=== PATIENT | male | born 1995 | race Caucasian/White ===

== ENCOUNTER 2017-04-10 04:36 | Emergency (ER) | payer OTHER ==
[~2017-04-10] VITALS: Ht 172.7 cm; Wt 48.0 kg
[~2017-04-10 04:36] MED LIST: DEXM5TAB PO; ERGO1CAP35 PO; OLAN-111 PO; ONDA4TAB7 SL; SERT-234 PO; TRAM-10 PO
[2017-04-10 04:44] VITALS: TEMP 36.7; Ht 172.7 cm; Wt 48.0 kg
[2017-04-10] MEDS ORDERED: GELATIN SPONGE 12-7MM ONE (05:11)
[2017-04-10 05:17] VITALS: BP 99/59; PULSE 65; O2SAT 98
--- NOTE | 2017-04-10 05:19 | EMERGENCY ROOM VISIT NOTE ---
ED Visit Note First contact with patient: 04:53 CHIEF COMPLAINT: Finger laceration HISTORY OF PRESENT ILLNESS: This 22 year old male patient presents to the emergency department after cutting the left thumb about 30 minutes ago. The patient states that he was hungry this morning, and got up to eat pizza. The patient used a sharp knife to cut the pizza, and sliced the very distal end of his thumb. The bleeding has not stopped. Denies weakness or numbness of the finger. The patient has full range of motion of the fingers. The patient rates the pain as dull and 5/10. The patient denies any other injuries. The patient' s tetanus shot is reportedly up to date. REVIEW OF SYSTEMS: A 6 system review of systems was completed with positives and pertinent negatives listed in the HPI. ALLERGIES: See EMR MEDICATIONS: See EMR PMH: No chronic medical disease SOCIAL HISTORY: Student who lives locally PHYSICAL EXAM: Vital Signs: Reviewed Nurse's notes, vital signs stable. GENERAL : White male, in no acute distress, well developed, well nourished. SKIN: There is a C shaped 1.0 cm long laceration on the most distal aspect of the left first finger. The edges do not significantly gape. There is no foreign material in the wound and it looks clean. There is minimal bleeding. No deep structures such as tendons, bones, or significant blood vessels are seen in the base of the wound. Extension and flexion of the finger is full and strong. Full range of motion of the wrist and other fingers. Capillary refill less than 2 seconds. Normal sensation to light and sharp touch. EMERGENCY DEPARTMENT COURSE: Physical exam and history were performed. Nursing notes and EMR were reviewed. The patient appears to have suffered a laceration to the very distal end of his left thumb. The wound is with minimal bleeding. I discussed options of care with the patient. The wound was cleansed thoroughly and treated with a Gelfoam dressing. The patient tolerated this well and he was given wound care instructions as below. The patient rated his discomfort a 0/10 at the time of departure. Current/Historical Medications Scheduled Ergocalciferol (Vitamin D Cap), 50,000 INTER.UNIT PO WK Olanzapine (Zyprexa), 5 MG PO DAILY Sertraline (Zoloft), 150 MG PO DAILY Scheduled PRN Dexmethylphenidate Hcl (Focalin), 5 MG PO DAILY PRN for ATTENTION Ondansetron (Zofran Odt), 4 MG SL Q6 PRN for Nausea or Vomiting Tramadol (Ultram), 50 MG PO Q6 PRN for Pain Allergies Coded Allergies: Metoclopramide (Unverified Allergy, Severe, SWOLLEN [employer]WAY, 06/23/14) Astemizole (Verified Allergy, Unknown, 06/23/14) Erythromycin (Verified Allergy, Unknown, 06/23/14) Sulfa Drugs (Verified Allergy, Unknown, 06/23/14) Terfenadine (Verified Allergy, Unknown, 06/23/14) Vital Signs Date Time Temp Pulse Resp B/P (MAP) Pulse Ox O2 Delivery O2 Flow Rate FiO2 04/10/17 04:44 36.7 87 18 137/96 97 Room Air Departure Information Impression Primary Impression: Finger laceration Dispostion Home / Self-Care Condition GOOD Forms HOME CARE DOCUMENTATION FORM, IMPORTANT VISIT INFORMATION Patient Instructions My [facility] Additional Instructions You were seen and evaluated today on an emergency basis only. This is not a substitute for, or an effort to provide, complete comprehensive medical care. It is not possible to recognize and treat all injuries or illnesses in a single emergency department visit. For this reason it is recommended that you followup with your primary care physician with any ongoing or persistent symptoms. Try to keep the Gelfoam in place for the next 48 hours. You may change the dressing if it becomes soiled or 24 hours goes by. You are welcome to return to the emergency department anytime with new, worsening, or concerning symptoms.
== END 2017-04-10 05:18 | disposition home or self-care (01) ==
LOC: C.EDB 04:36
DX: S61.012A Laceration without foreign body of left thumb without damage to nail, initial encounter (principal); W26.0XXA Contact with knife, initial encounter; Y93.G1 Activity, food preparation and clean up; Z79.899 Other long term (current) drug therapy

== ENCOUNTER 2017-11-26 11:16 | Emergency (ER) | payer OTHER ==
[~2017-11-26] VITALS: Ht 172.7 cm; Wt 49.4 kg
[2017-11-26 11:27] VITALS: TEMP 36.5; Ht 172.7 cm; Wt 49.4 kg
[2017-11-26] MEDS ORDERED: KETOROLAC TROMETHAMINE 30 MG/ML VIAL IV STA (11:34)
[2017-11-26] MEDS ORDERED: ONDANSETRON INJ 2 MG/ML 2 ML VIAL IV STA (11:34)
[2017-11-26] MEDS ORDERED: SODIUM CHLORIDE 0.9% 1000ML 1,000 ML IV STA (11:34)
[2017-11-26 11:48] LABS: BASO % 0.1 %; BASO ABS # 0.01 K/uL (0-0.2); EOS % 0.5 %; EOS ABS # 0.04 K/uL (0-0.5); HEMATOCRIT 44.7 % (42-52); HEMOGLOBIN 15.8 g/dL (14.0-18.0); IG# 0.02 K/uL (0.00-0.02); LYMPH % 43.3 %; LYMPH ABS # 3.39 K/uL (1.2-3.4); MEAN CELL VOLUME 89.2 fL (80-100); MEAN CORPUSCULAR HEMOGLOBIN 31.5 pg (25-34); MEAN CORPUSCULAR HGB CONC 35.3 g/dl (32-36); MEAN PLATELET VOLUME 10.6 fL (7.4-10.4); MONO % 8.4 %; MONO ABS # 0.66 K/uL (0.11-0.59); NEUT % 47.4 %; NEUT ABS # 3.71 K/uL (1.4-6.5); PLATELET COUNT 501 K/uL (130-400); RED CELL DISTRIBUTION WIDTH CV 13.3 % (11.5-14.5); RED CELL DISTRIBUTION WIDTH SD 43.4 fL (36.4-46.3); WHITE BLOOD COUNT 7.83 K/uL (4.8-10.8)
[2017-11-26] MEDS ORDERED: IBUP-103 PO (11:49)
[2017-11-26 12:06] LABS: ALBUMIN 4.4 gm/dl (3.4-5.0); CALCIUM 9.3 mg/dl (8.5-10.1); CREATININE 0.84 mg/dl (0.60-1.40); POTASSIUM 3.8 mmol/L (3.5-5.1)
[2017-11-26 12:09] LABS: TOTAL PROTEIN 8.5 gm/dl (6.4-8.2)
--- NOTE | 2017-11-26 12:22 | DIAGNOSTIC IMAGING REPORT ---
CT SCAN OF THE ABDOMEN AND PELVIS WITHOUT CONTRAST CLINICAL HISTORY: Right flank pain COMPARISON STUDY: 12/05/2013 TECHNIQUE: CT scan of the abdomen and pelvis was performed from the lung bases to the proximal femurs. Images are reviewed in the axial, sagittal, and coronal planes. IV contrast was not administered for this examination. A dose lowering technique was utilized adhering to the principles of ALARA. CT DOSE: 259.40 mGy.cm FINDINGS: Lower chest: The heart is normal in size and configuration, without pericardial effusion. The lung bases and pleural spaces are clear. Liver: The unenhanced liver is normal in size, contour, and attenuation. There is no intrahepatic biliary ductal dilatation. Gallbladder: Unremarkable. Spleen: Normal in size and attenuation. Pancreas: Unremarkable. Adrenal glands: Unremarkable. Kidneys: No renal calculi are visualized. There is minimal fullness the right renal pelvis. There is a 2.4 mm distal right ureteral calculus. There is a second right pelvic calcification. This likely represents either a second ureteral calculus, or appendicolith. Bowel: There are no transition zones to indicate bowel obstruction. The appendix is difficult to visualize on this study performed without intravenous or oral contrast. There is a right lower quadrant calcification, likely representing either an appendicolith or ureteral calculus. There is borderline wall thickening involving the descending colon. Peritoneum: There is no intraperitoneal free air or abdominal ascites. Vasculature: The abdominal aorta is normal in course and caliber. Adenopathy: None. Pelvic viscera: The bladder, and pelvic viscera are unremarkable. Skeletal structures: No destructive osseous lesions are seen. IMPRESSION: 1. 2.4 mm distal right ureteral calculus. There is only minimal secondary fullness the right renal pelvis 2. There is an additional 2 mm right pelvic calcification. It is unclear whether this represents a second ureteral calculus, or an appendicolith. 3. No evidence of bowel obstruction. No evidence of free air 4. Borderline wall thickening involving the descending colon (nondistended segment versus mild colitis) Electronically signed by: García Shell M.D. 11/26/2017 12:21 PM Dictated Date/Time: 11/26/2017 12:14 PM
[2017-11-26] MEDS ORDERED: MoRPHine SULFATE 4 MG/ML 1 ML CARP\\VIAL IV PRN (12:45)
[2017-11-26] MEDS ORDERED: OXYC-57 PO (13:38)
--- NOTE | 2017-11-26 13:47 | EMERGENCY ROOM VISIT NOTE ---
History Report prepared by Sallie: Connie Enciso Under the Supervision of: Dr. Bari Momin D.O. First contact with patient: 11:34 Chief Complaint: KIDNEY STONE Stated Complaint: KIDNEY PAIN History of Present Illness The patient is a 22 year old male who presents to the Emergency Room with complaints of severe constant right flank pain beginning about 3 hours ago. The patient states his pain woke him up from a " sleep". He reports his pain is making him nauseous. The patient has a history of kidney stones. He states his pain feels the same as the last time he had a kidney stone. Source of History: patient Onset: 3 hours ago Position: other (right flank) Symptom Intensity: severe Quality: other (pain) Timing: constant Associated Symptoms: + nausea Review of Systems See HPI for pertinent positives & negatives. A total of 10 systems reviewed and were otherwise negative. Past Medical & Surgical Medical Problems: (1) Kidney stone Family History Patient reports no known family medical history. Social History Smoking Status: Never Smoker Alcohol Use: none Drug Use: none Marital Status: single Housing Status: lives with family Occupation Status: student Current/Historical Medications Scheduled PRN Ibuprofen Tab (Advil), 800 MG PO UD PRN for Pain Oxycodone/Acetaminophen 5MG/325MG (Percocet 5MG/325MG), 1 TAB PO Q6H PRN for Pain Allergies Coded Allergies: Metoclopramide (Unverified Allergy, Severe, SWOLLEN AIRWAY, 11/26/17) Astemizole (Verified Allergy, Unknown, 11/26/17) Erythromycin (Verified Allergy, Unknown, 11/26/17) Sulfa Drugs (Verified Allergy, Unknown, 11/26/17) Terfenadine (Verified Allergy, Unknown, 11/26/17) Physical Exam Vital Signs Date Time Temp Pulse Resp B/P (MAP) Pulse Ox O2 Delivery O2 Flow Rate FiO2 11/26/17 13:30 55 17 103/74 97 Room Air 11/26/17 11:27 36.5 70 16 130/93 98 Room Air Physical Exam CONSTITUTIONAL/VITAL SIGNS: Reviewed / noted above. GENERAL: Non-toxic in appearance. INTEGUMENTARY: Warm, dry, and [place]. HEAD: Normocephalic. EYES: without scleral icterus or trauma. ENT/OROPHARYNX: clear and moist. LYMPHADENOPATHY/NECK: Is supple without lymphadenopathy or meningismus. RESPIRATORY: Lungs clear and equal. CARDIOVASCULAR: Regular rate and rhythm. GI/ABDOMEN: Soft and nontender. No organomegaly or pulsatile mass. No rebound or guarding. Normal bowel sounds. EXTREMITIES: Warm and well perfused. BACK: Right CVA tenderness. NEUROLOGICAL: Intact without focal deficits. PSYCHIATRIC: normal affect. MUSCULOSKELETAL: Normally developed with good muscle tone. Medical Decision & Procedures ER Provider Diagnostic Interpretation: Radiology results as stated below per my review and radiologist interpretation: CT SCAN OF THE ABDOMEN AND PELVIS WITHOUT CONTRAST FINDINGS: Lower chest: The heart is normal in size and configuration, without pericardial effusion. The lung bases and pleural spaces are clear. Liver: The unenhanced liver is normal in size, contour, and attenuation. There is no intrahepatic biliary ductal dilatation. Gallbladder: Unremarkable. Spleen: Normal in size and attenuation. Pancreas: Unremarkable. Adrenal glands: Unremarkable. Kidneys: No renal calculi are visualized. There is minimal fullness the right renal pelvis. There is a 2.4 mm distal right ureteral calculus. There is a second right pelvic calcification. This likely represents either a second ureteral calculus, or appendicolith. Bowel: There are no transition zones to indicate bowel obstruction. The appendix is difficult to visualize on this study performed without intravenous or oral contrast. There is a right lower quadrant calcification, likely representing either an appendicolith or ureteral calculus. There is borderline wall thickening involving the descending colon. Peritoneum: There is no intraperitoneal free air or abdominal ascites. Vasculature: The abdominal aorta is normal in course and caliber. Adenopathy: None. Pelvic viscera: The bladder, and pelvic viscera are unremarkable. Skeletal structures: No destructive osseous lesions are seen. IMPRESSION: 1. 2.4 mm distal right ureteral calculus. There is only minimal secondary fullness the right renal pelvis 2. There is an additional 2 mm right pelvic calcification. It is unclear whether this represents a second ureteral calculus, or an appendicolith. 3. No evidence of bowel obstruction. No evidence of free air 4. Borderline wall thickening involving the descending colon (nondistended segment versus mild colitis) Electronically signed by: García Sehll M.D. Laboratory Results 11/26/17 11:35 Red Blood Count 5.01, Mean Corpuscular Volume 89.2, Mean Corpuscular Hemoglobin 31.5, Mean Corpuscular Hemoglobin Concent 35.3, Mean Platelet Volume 10.6, Neutrophils (%) (Auto) 47.4, Lymphocytes (%) (Auto) 43.3, Monocytes (%) (Auto) 8.4, Eosinophils (%) (Auto) 0.5, Basophils (%) (Auto) 0.1, Neutrophils # (Auto) 3.71, Lymphocytes # (Auto) 3.39, Monocytes # (Auto) 0.66, Eosinophils # (Auto) 0.04, Basophils # (Auto) 0.01 11/26/17 11:35 Test 11/26/17 11:35 11/26/17 13:20 White Blood Count 7.83 K/uL (4.8-10.8) Red Blood Count 5.01 M/uL (4.7-6.1) Hemoglobin 15.8 g/dL (14.0-18.0) Hematocrit 44.7 % (42-52) Mean Corpuscular Volume 89.2 fL (80-100) Mean Corpuscular Hemoglobin 31.5 pg (25-34) Mean Corpuscular Hemoglobin Concent 35.3 g/dl (32-36) Platelet Count 501 K/uL (130-400) Mean Platelet Volume 10.6 fL (7.4-10.4) Neutrophils (%) (Auto) 47.4 % Lymphocytes (%) (Auto) 43.3 % Monocytes (%) (Auto) 8.4 % Eosinophils (%) (Auto) 0.5 % Basophils (%) (Auto) 0.1 % Neutrophils # (Auto) 3.71 K/uL (1.4-6.5) Lymphocytes # (Auto) 3.39 K/uL (1.2-3.4) Monocytes # (Auto) 0.66 K/uL (0.11-0.59) Eosinophils # (Auto) 0.04 K/uL (0-0.5) Basophils # (Auto) 0.01 K/uL (0-0.2) RDW Standard Deviation 43.4 fL (36.4-46.3) RDW Coefficient of Variation 13.3 % (11.5-14.5) Immature Granulocyte % (Auto) 0.3 % Immature Granulocyte # (Auto) 0.02 K/uL (0.00-0.02) Anion Gap 7.0 mmol/L (3-11) Est Creatinine Clear Calc Drug Dose 96.4 ml/min Estimated GFR () 144.0 Estimated GFR (Non- 124.3 BUN/Creatinine Ratio 15.4 (10-20) Calcium Level 9.3 mg/dl (8.5-10.1) Total Bilirubin 0.9 mg/dl (0.2-1) Direct Bilirubin 0.2 mg/dl (0-0.2) Aspartate Amino Transf (AST/SGOT) 15 U/L (15-37) Alanine Aminotransferase (ALT/SGPT) 27 U/L (12-78) Alkaline Phosphatase 125 U/L (45-117) Total Protein 8.5 gm/dl (6.4-8.2) Albumin 4.4 gm/dl (3.4-5.0) Lipase 570 U/L (73-393) Medications Administered Medications (Trade) Dose Ordered Sig/Ana Route Start Time Stop Time Status Last Admin Dose Admin Sodium Chloride 1,000 ml @ 999 mls/hr Q1H1M STAT IV 11/26/17 11:34 11/26/17 12:34 DC 11/26/17 11:44 999 MLS/HR Ondansetron HCl (Zofran Inj) 4 mg NOW STAT IV 11/26/17 11:34 11/26/17 11:35 DC 11/26/17 11:43 4 MG Ketorolac Tromethamine (Toradol Inj) 30 mg NOW STAT IV 11/26/17 11:34 11/26/17 11:35 DC 11/26/17 11:44 30 MG Morphine Sulfate (MoRPHine SULFATE INJ) 4 mg Q15M PRN IV 11/26/17 12:45 12/10/17 12:44 11/26/17 12:42 4 MG ED Course 1134: Ordered Toradol Inj 30 mg IV, Zofran Inj 4 mg IV, Sodium Chloride 1000 ml @ 999 mls/hr IV. 1236: Previous medical records were reviewed. The patient was evaluated in room A10. A complete history and physical examination was performed. 1245: Ordered Morphine Sulfate 4 mg IV. 1349: On reevaluation, the patient is resting comfortably. I discussed the results and findings with the patient. He verbalized agreement of the treatment plan. The patient was discharged home. Medical Decision Differential diagnosis: Etiologies such as renal colic, appendicitis, diverticulitis, mesenteric ischemia, aortic pathology, infections, inflammatory bowel disease, PUD, biliary pathology, UTI, as well as others were entertained. This is a 22-year-old male who presents to the ED with a chief complaint of right flank pain. The patient states that his symptoms started at 10 AM this morning. He had some associated nausea and vomiting with the pain. Vital signs are stable. His exam revealed right CVA tenderness. A CT scan reveals a 2.4 mm distal right ureteral stone. CBC and complete metabolic panel were normal. The patient was treated with IV Toradol, IV Zofran, IV morphine. His symptoms improved. He was discharged with Percocet and a urine strainer. He is felt to be stable for discharge and outpatient follow-up. Medication Reconcilliation Current Medication List: was personally reviewed by me Blood Pressure Screening Patient's blood pressure: Normal blood pressure Impression Primary Impression: Renal colic Additional Impression: Kidney stone Scribe Attestation The scribe's documentation has been prepared under my direction and personally reviewed by me in its entirety. I confirm that the note above accurately reflects all work, treatment, procedures, and medical decision making performed by me. Departure Information Dispostion Home / Self-Care Prescriptions Oxycodone/Acetaminophen 5MG/325MG (PERCOCET 5MG/325MG) Tab 1 TAB PO Q6H Y for Pain, #20 TAB Prov: Bari Momin D.O. 11/26/17 Referrals Laly Fajardo D.O. (PCP) Forms HOME CARE DOCUMENTATION FORM, IMPORTANT VISIT INFORMATION Patient Instructions My [facility] Additional Instructions Percocet as prescribed. No driving within 6 hours of use. Do not take additional Tylenol while taking Percocet. Strain urine for stone. Follow-up with your doctor for further care and evaluation in 1-2 days. Return to the emergency department for worsening or new symptoms or any concerns. You have been examined and treated today on an emergency basis only. This is not a substitute for, or an effort to provide, complete comprehensive medical care. It is impossible to recognize and treat all injuries or illnesses in a single emergency department visit. It is therefore important that you follow up closely with your doctor. Call as soon as possible for an appointment. Problem Qualifiers
[2017-11-26 13:54] VITALS: BP 103/74; PULSE 55; O2SAT 97
== END 2017-11-26 13:55 | disposition home or self-care (01) ==
LOC: C.EDB 11:17 → C.EDA 13:55
DX: N20.0 Calculus of kidney (principal); N23 Unspecified renal colic; R10.9 Unspecified abdominal pain; R11.0 Nausea

== ENCOUNTER 2017-12-04 11:32 | Emergency (ER) | payer OTHER ==
[~2017-12-04] VITALS: Ht 172.7 cm; Wt 49.4 kg
[~2017-12-04 11:32] MED LIST changes: -DEXM5TAB PO; -ERGO1CAP35 PO; +IBUP-103 PO; -OLAN-111 PO; -ONDA4TAB7 SL; +OXYC-57 PO; -SERT-234 PO; -TRAM-10 PO
[2017-12-04 11:39] VITALS: Ht 172.7 cm; Wt 49.4 kg
[2017-12-04] MEDS ORDERED: MoRPHine SULFATE 4 MG/ML 1 ML CARP\\VIAL IV STA ×2 (12:09→14:21)
[2017-12-04] MEDS ORDERED: SODIUM CHLORIDE 0.9% 1000ML 1,000 ML IV STA (12:09)
[2017-12-04] MEDS ORDERED: ONDANSETRON INJ 2 MG/ML 2 ML VIAL IV STA ×2 (12:09→14:21)
[2017-12-04 12:26] LABS: BASO % 0.2 %; BASO ABS # 0.01 K/uL (0-0.2); EOS % 0.4 %; EOS ABS # 0.02 K/uL (0-0.5); HEMATOCRIT 39.6 % (42-52); HEMOGLOBIN 14.6 g/dL (14.0-18.0); IG# 0.01 K/uL (0.00-0.02); LYMPH ABS # 1.75 K/uL (1.2-3.4); MEAN CELL VOLUME 86.7 fL (80-100); MEAN CORPUSCULAR HEMOGLOBIN 31.9 pg (25-34); MEAN CORPUSCULAR HGB CONC 36.9 g/dl (32-36); MEAN PLATELET VOLUME 11.7 fL (7.4-10.4); MONO % 11.5 %; MONO ABS # 0.61 K/uL (0.11-0.59); NEUT % 54.7 %; PLATELET COUNT 198 K/uL (130-400); RED CELL DISTRIBUTION WIDTH CV 13.1 % (11.5-14.5); RED CELL DISTRIBUTION WIDTH SD 41.7 fL (36.4-46.3)
[2017-12-04 12:50] LABS: ALBUMIN 4.5 gm/dl (3.4-5.0); CREATININE 0.93 mg/dl (0.60-1.40); POTASSIUM 3.3 mmol/L (3.5-5.1)
[2017-12-04 12:52] LABS: TOTAL PROTEIN 7.7 gm/dl (6.4-8.2)
--- NOTE | 2017-12-04 12:55 | EMERGENCY ROOM VISIT NOTE ---
History Report prepared by Sallie: Ana Maria Solis Under the Supervision of: Dr. Kait Perea M.D. First contact with patient: 12:00 Chief Complaint: URINARY SYMPTOMS Stated Complaint: KIDNEY STONE Nursing Triage Summary: Pt reports right sided flank pain, started 20 minutes ago. started as an ache and is increasing. pt denies n/v/d. Associtaed difficulty urinating. Seen here about 1 week ago for the same. Told he has several kidney stones. History of Present Illness The patient is a 22 year old male who presents to the Emergency Room with complaints of persistent right flank pain since one hour [employer]. He currently rates his pain an 8/10 in severity. He notes he urinated this morning and it was relatively clear, though he just urinated while here in the ED and the urine is dark in color. He denies any fevers. He notes that he takes Percocet, though could not find them this morning. He was recently seen in the ED for kidney stones. He states that he has not followed up with urology. 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 He denies any ongoing medical problems. He denies any history of diabetes. Source of History: patient Onset: one hour [employer]GER Position: other (right flank) Symptom Intensity: 8/10 Timing: other (persistent) Associated Symptoms: + urinary symptoms (urine is dark in color), No fevers Review of Systems See HPI for pertinent positives & negatives. A total of 10 systems reviewed and were otherwise negative. Past Medical & Surgical Medical Problems: (1) Kidney stone Family History Cancer Kidney disease Kidney stones Social History Smoking Status: Former Smoker Alcohol Use: none Drug Use: none Marital Status: single Housing Status: lives with family Occupation Status: student Current/Historical Medications Scheduled Tamsulosin Hcl (Flomax), 0.4 MG PO DAILY Scheduled PRN Oxycodone/Acetaminophen 5MG/325MG (Percocet 5MG/325MG), 1-2 TABS PO Q6H PRN for Pain Allergies Coded Allergies: Metoclopramide (Unverified Allergy, Severe, [place], 11/26/17) Astemizole (Verified Allergy, Unknown, 11/26/17) Erythromycin (Verified Allergy, Unknown, 11/26/17) Sulfa Drugs (Verified Allergy, Unknown, 11/26/17) Terfenadine (Verified Allergy, Unknown, 11/26/17) Physical Exam Vital Signs Date Time Temp Pulse Resp B/P (MAP) Pulse Ox O2 Delivery O2 Flow Rate FiO2 12/04/17 15:41 36.9 65 18 122/78 97 12/04/17 12:26 83 20 123/80 100 Room Air 12/04/17 11:39 36.9 85 16 161/111 100 Room Air Physical Exam Vital signs reviewed. General: Well-appearing, in no significant distress. HEENT: No scleral icterus, PERRLA, neck supple. Atraumatic. Cardiovascular: Regular rate and rhythm, no extra sounds. Pulmonary: Clear to auscultation bilaterally, normal work of breathing. Abdomen: Soft, mild RLQ tenderness, nondistended, positive bowel sounds. Musculoskeletal: Atraumatic, no peripheral edema. Right sided CVA tenderness. Neurologic: Patient awake alert and oriented x 3 Skin: Warm, dry, no rash Medical Decision & Procedures ER Provider Diagnostic Interpretation: Radiology results as stated below per my review and radiologist interpretation: KUB CLINICAL HISTORY: R flank pain, kidney stone COMPARISON STUDY: 08/20/2010, CT scan dated to 118 FINDINGS: There is no pathologic bowel dilatation. There are no calcifications suspicious for renal calculi. There is a punctate nonspecific right pelvic basin calcification IMPRESSION: 1. No evidence of pathologic bowel dilatation 2. No renal calculi identified 3. Punctate nonspecific right pelvic basin calcification Electronically signed by: García Shell M.D. 12/04/2017 1:02 PM Dictated Date/Time: 12/04/2017 1:00 PM (RENAL)RETROPERITON COMP CLINICAL HISTORY: 22 years-old Male presenting with R flank pain, kidney stone. TECHNIQUE: Real-time grayscale and limited color Doppler ultrasound imaging of the kidneys and bladder was performed. COMPARISON: CT from 11/26/2017. FINDINGS: Right kidney: Normal echogenicity of renal parenchyma. Right kidney measures 10.0 cm. Mild pelvocaliectasis and dilatation of the proximal right ureter. Trace perinephric fluid. Normal perfusion. Left kidney: Normal echogenicity of renal parenchyma. Left kidney measures 9.6 cm. No hydronephrosis. No convincing evidence of calculus or mass. Normal perfusion. Bladder: Not visualized secondary to decompression. Bilateral ureteral jets not visualized. Other: Hyperechogenicity of the hepatic parenchyma suggest hepatic steatosis. IMPRESSION: 1. Suspected mild right hydroureteronephrosis. No sonographic evidence of renal calculi. The previously noted right ureteral calculus is not apparent on ultrasound. Electronically signed by: Acosta Fofana M.D. 12/04/2017 1:15 PM Dictated Date/Time: 12/04/2017 1:12 PM Laboratory Results 12/04/17 12:20 Red Blood Count 4.57, Mean Corpuscular Volume 86.7, Mean Corpuscular Hemoglobin 31.9, Mean Corpuscular Hemoglobin Concent 36.9, Mean Platelet Volume 11.7, Neutrophils (%) (Auto) 54.7, Lymphocytes (%) (Auto) 33.0, Monocytes (%) (Auto) 11.5, Eosinophils (%) (Auto) 0.4, Basophils (%) (Auto) 0.2, Neutrophils # (Auto ) 2.90, Lymphocytes # (Auto) 1.75, Monocytes # (Auto) 0.61, Eosinophils # (Auto ) 0.02, Basophils # (Auto) 0.01 12/04/17 12:20 Test 12/04/17 12:20 White Blood Count 5.30 K/uL (4.8-10.8) Red Blood Count 4.57 M/uL (4.7-6.1) Hemoglobin 14.6 g/dL (14.0-18.0) Hematocrit 39.6 % (42-52) Mean Corpuscular Volume 86.7 fL (80-100) Mean Corpuscular Hemoglobin 31.9 pg (25-34) Mean Corpuscular Hemoglobin Concent 36.9 g/dl (32-36) Platelet Count 198 K/uL (130-400) Mean Platelet Volume 11.7 fL (7.4-10.4) Neutrophils (%) (Auto) 54.7 % Lymphocytes (%) (Auto) 33.0 % Monocytes (%) (Auto) 11.5 % Eosinophils (%) (Auto) 0.4 % Basophils (%) (Auto) 0.2 % Neutrophils # (Auto) 2.90 K/uL (1.4-6.5) Lymphocytes # (Auto) 1.75 K/uL (1.2-3.4) Monocytes # (Auto) 0.61 K/uL (0.11-0.59) Eosinophils # (Auto) 0.02 K/uL (0-0.5) Basophils # (Auto) 0.01 K/uL (0-0.2) RDW Standard Deviation 41.7 fL (36.4-46.3) RDW Coefficient of Variation 13.1 % (11.5-14.5) Immature Granulocyte % (Auto) 0.2 % Immature Granulocyte # (Auto) 0.01 K/uL (0.00-0.02) Urine Color DK YELLOW Urine Appearance CLEAR (CLEAR) Urine pH 6.0 (4.5-7.5) Urine Specific [place] 1.033 (1.000-1.030) Urine Protein 1+ (NEG) Urine Glucose (UA) NEG (NEG) Urine Ketones TRACE (NEG) Urine Occult Blood 3+ (NEG) Urine Nitrite NEG (NEG) Urine Bilirubin NEG (NEG) Urine Urobilinogen NEG (NEG) Urine Leukocyte Esterase NEG (NEG) Urine WBC (Auto) 1-5 /hpf (0-5) Urine RBC (Auto) >30 /hpf (0-4) Urine Hyaline Casts (Auto) 1-5 /lpf (0-5) Urine Epithelial Cells (Auto) 10-20 /lpf (0-5) Urine Bacteria (Auto) NEG (NEG) Anion Gap 9.0 mmol/L (3-11) Est Creatinine Clear Calc Drug Dose 87.1 ml/min Estimated GFR () 134.6 Estimated GFR (Non- 116.1 BUN/Creatinine Ratio 15.4 (10-20) Calcium Level 9.0 mg/dl (8.5-10.1) Total Bilirubin 0.9 mg/dl (0.2-1) Direct Bilirubin 0.3 mg/dl (0-0.2) Aspartate Amino Transf (AST/SGOT) 13 U/L (15-37) Alanine Aminotransferase (ALT/SGPT) 18 U/L (12-78) Alkaline Phosphatase 110 U/L (45-117) Total Protein 7.7 gm/dl (6.4-8.2) Albumin 4.5 gm/dl (3.4-5.0) Laboratory results per my review. Medications Administered Medications (Trade) Dose Ordered Sig/Ana Route Start Time Stop Time Status Last Admin Dose Admin Morphine Sulfate (MoRPHine SULFATE INJ) 4 mg NOW STAT IV 2/9/18 12:09 12/04/17 12:11 DC 12/04/17 12:29 4 MG Ondansetron HCl (Zofran Inj) 4 mg NOW STAT IV 12/04/17 12:09 12/04/17 12:11 DC 12/04/17 12:28 4 MG Sodium Chloride 1,000 ml @ 999 mls/hr Q1H1M STAT IV 12/04/17 12:09 12/04/17 13:09 DC 12/04/17 12:28 999 MLS/HR Morphine Sulfate (MoRPHine SULFATE INJ) 4 mg NOW STAT IV 12/04/17 14:21 12/04/17 14:22 DC 12/04/17 14:31 4 MG Tamsulosin HCl (Flomax Cap) 0.4 mg NOW ONCE PO 12/04/17 14:30 12/04/17 14:31 DC 12/04/17 14:30 0.4 MG Ondansetron HCl (Zofran Inj) 4 mg NOW STAT IV 12/04/17 14:21 12/04/17 14:22 DC 12/04/17 14:21 4 MG Ketorolac Tromethamine (Toradol Inj) 30 mg NOW STAT IV 12/04/17 14:22 12/04/17 14:23 DC 12/04/17 14:30 30 MG ED Course 1207: Past medical records reviewed. The patient was evaluated in room B7. A complete history and physical examination was performed. 1209: Ordered Sodium Chloride 1,000 ml @ 999 mls/hr IV, Zofran 4 mg IV, and Morphine Sulfate 4 mg IV 1420: I reassessed the patient at this time. The patient is screaming in pain. 1421: Ordered Zofran 4 mg IV and Morphine Sulfate 4 mg IV 1422: Ordered Toradol 30 mg IV 1430: Ordered Flomax 0.4 mg PO 1450: I reassessed the patient at this time. He is feeling better and resting comfortably. I discussed the results and treatment plan with the patient. I answered all pertaining questions that he had. He expressed understanding and verbalized agreement. The patient will be discharged home. Medical Decision Differential diagnosis: Etiologies such as renal colic, appendicitis, diverticulitis, mesenteric ischemia, aortic pathology, infections, inflammatory bowel disease, PUD, biliary pathology, UTI, as well as others were entertained. This patient was evaluated and appeared to be in significant discomfort. IV access was obtained and laboratory work was drawn. The patient was placed on surveillance system monitor and found to be in a normal sinus rhythm. Patient was given IV morphine and Zofran. He was hydrated with normal saline solution. KUB and ultrasound of the retroperitoneum were performed. This workup is consistent with a right ureteral calculus. The UA is negative for infection but significant for blood. Patient did require second dose of medications and was given IV morphine, IV Zofran, IV Toradol and Flomax. He was feeling much improved. The patient will be discharged to follow-up with urology. He was given a prescription for Percocet and Flomax. Patient will return to the ER for worsening of symptoms or any medical concerns. Medication Reconcilliation Current Medication List: was personally reviewed by me Blood Pressure Screening Patient's blood pressure: Normal blood pressure Impression Primary Impression: Right ureteral calculus Scribe Attestation The scribe's documentation has been prepared under my direction and personally reviewed by me in its entirety. I confirm that the note above accurately reflects all work, treatment, procedures, and medical decision making performed by me. Departure Information Dispostion Home / Self-Care Prescriptions Tamsulosin Hcl (FLOMAX) 0.4 Mg Cap 0.4 MG PO DAILY, #10 CAP Prov: Kait Perea M.D. 12/04/17 Oxycodone/Acetaminophen 5MG/325MG (PERCOCET 5MG/325MG) Tab 1-2 TABS PO Q6H Y for Pain, #14 TAB Prov: Kait Perea M.D. 12/04/17 Referrals No Doctor, Assigned (PCP) Forms HOME CARE DOCUMENTATION FORM, IMPORTANT VISIT INFORMATION Patient Instructions My [facility] Additional Instructions Diagnosis: Right ureteral calculus Drink plenty of clear fluids. Ibuprofen 600 mg every 6 hours as needed for pain with food. Percocet 1-2 tabs every 6 hours as needed for severe pain. Do not drive or take Tylenol with this medication. Flomax 0.4 mg daily until symptoms resolve. Follow up with urology if symptoms persist. See Dr. Cullen's information below. Return to the emergency department for worsening of symptoms, fevers or any medical concerns
--- NOTE | 2017-12-04 13:04 | DIAGNOSTIC IMAGING REPORT ---
KUB CLINICAL HISTORY: R flank pain, kidney stone COMPARISON STUDY: 08/20/2010, CT scan dated to 118 FINDINGS: There is no pathologic bowel dilatation. There are no calcifications suspicious for renal calculi. There is a punctate nonspecific right pelvic basin calcification IMPRESSION: 1. No evidence of pathologic bowel dilatation 2. No renal calculi identified 3. Punctate nonspecific right pelvic basin calcification Electronically signed by: García Shell M.D. 12/04/2017 1:02 PM Dictated Date/Time: 12/04/2017 1:00 PM
--- NOTE | 2017-12-04 13:16 | DIAGNOSTIC IMAGING REPORT ---
(RENAL)RETROPERITON COMP CLINICAL HISTORY: 22 years-old Male presenting with R flank pain, kidney stone. TECHNIQUE: Real-time grayscale and limited color Doppler ultrasound imaging of the kidneys and bladder was performed. COMPARISON: CT from 11/26/2017. FINDINGS: Right kidney: Normal echogenicity of renal parenchyma. Right kidney measures 10.0 cm. Mild pelvocaliectasis and dilatation of the proximal right ureter. Trace perinephric fluid. Normal perfusion. Left kidney: Normal echogenicity of renal parenchyma. Left kidney measures 9.6 cm. No hydronephrosis. No convincing evidence of calculus or mass. Normal perfusion. Bladder: Not visualized secondary to decompression. Bilateral ureteral jets not visualized. Other: Hyperechogenicity of the hepatic parenchyma suggest hepatic steatosis. IMPRESSION: 1. Suspected mild right hydroureteronephrosis. No sonographic evidence of renal calculi. The previously noted right ureteral calculus is not apparent on ultrasound. Electronically signed by: Acosta Fofana M.D. 12/04/2017 1:15 PM Dictated Date/Time: 12/04/2017 1:12 PM
[2017-12-04] MEDS ORDERED: KETOROLAC TROMETHAMINE 30 MG/ML VIAL IV STA (14:22)
[2017-12-04] MEDS ORDERED: TAMSULOSIN HCL 0.4 MG CAP PO ONE (14:30)
[2017-12-04] MEDS ORDERED: TAMS0.4C38 PO (15:15)
[2017-12-04] MEDS ORDERED: OXYC-57 PO (15:15)
[2017-12-04 15:41] VITALS: BP 122/78; PULSE 65; TEMP 36.9; O2SAT 97
== END 2017-12-04 15:42 | disposition home or self-care (01) ==
LOC: C.EDB 11:34
DX: N20.1 Calculus of ureter (principal); R10.9 Unspecified abdominal pain; Z87.442 Personal history of urinary calculi; Z87.891 Personal history of nicotine dependence; Z84.1 Family history of disorders of kidney and ureter; Z88.1 Allergy status to other antibiotic agents; Z88.2 Allergy status to sulfonamides; Z88.8 Allergy status to other drugs, medicaments and biological substances